=== PATIENT | female | born 1960 | race Caucasian/White ===

== ENCOUNTER → 2020-03-30 | Outpatient (CLI) | payer BC | LOC: LAB FS 10:30 | PROVIDERS: ATTEND Orthopaedic Surgery | DX: Z01.812 Encounter for preprocedural laboratory examination (principal); Z20.822 Contact with and (suspected) exposure to COVID-19 | CPT/HCPCS: 87635 ==

== ENCOUNTER 2020-04-03 17:55 | Emergency (ER) | payer BC ==
[~2020-04-03] VITALS: Ht 167.7 cm; Wt 81.8 kg
[2020-04-03 17:58] VITALS: BP 156/95
--- NOTE | 2020-04-03 18:18 | ED Lower Extremity ---
General Chief Complaint: Lower Extremity Stated Complaint: SWELLING IN RT LOWER LEG Source: patient Exam Limitations: no limitations History of Present Illness Date Seen by Provider: Apr 03, 2020 Time Seen by Provider: 18:10 Initial Comments 59 y/o female presents w swelling of her right lower leg. Had a right knee arthroscopy yesterday by Dr Khalil @ [address] [place] [address] in [place]? Says she doesn't have any leg or calf pain, just had swelling from her knee down, but she thinks she was probably up walking too much today. Swelling already better after sitting. No pain w movement, no redness. Knee w minor pain to touch and w movement. No chest pain, no SOA, cough, no exertional soa, no fever Allergies and Home Medications Allergies Coded Allergies: No Known Drug Allergies (Unverified , 04/03/20) Patient Home Medication List Home Medication List Reviewed: Yes Review of Systems Constitutional: No dizziness, No fever, No malaise, No weakness Respiratory: No cough, No dyspnea on exertion, No short of breath Cardiovascular: No chest pain, No edema, No palpitations, No syncope Gastrointestinal: No abdominal pain, No nausea, No vomiting Musculoskeletal: No back pain; joint pain (R knee, mild); No neck pain Skin: see HPI; No change in color, No lesions, No lumps, No rash Past Pgoukdh-Dspwna-Lupyhh Hx Past Med/Social Hx: Reviewed Nursing Past Med/Soc Hx Patient Social History Alcohol Use: Regular Use Number of Drinks Today: 0 Alcohol Beverage of Choice: Beer Smoking Status: Never a Smoker 2nd Hand Smoke Exposure: No Recent Hopitalizations: No Seasonal Allergies Seasonal Allergies: No Past Medical History Surgeries: Yes (Miniscus repair right knee, Total hysterectomy, Colonoscopy, breast biopsy) Breast, Hysterectomy Respiratory: No Cardiac: No Neurological: No (Restless leg syndrome) Genitourinary: No Gastrointestinal: No Musculoskeletal: No Endocrine: No HEENT: No Cancer: No Psychosocial: Yes ADD/ADHD, Depression Integumentary: No Blood Disorders: No Physical Exam Vital Signs Capillary Refill : Height, Weight, BMI Height: '" Weight: lbs. oz. kg; BMI Method: General Appearance: WD/WN, no apparent distress Legs: bilateral leg non-tender, bilateral leg normal inspection, bilateral leg normal range of motion, bilateral leg no evidence of injury Knees: bilateral knee normal inspection, bilateral knee no evidence of injury Ankles: bilateral ankle non-tender, bilateral ankle normal inspection, bilateral ankle normal range of motion, bilateral ankle no evidence of injury Feet: bilateral foot non-tender, bilateral foot normal inspection, bilateral foot normal range of motion, bilateral foot no evidence of injury Neurologic/Tendon: normal sensation, normal motor functions Neurologic/Psychiatric: no motor/sensory deficits, alert, normal mood/affect Skin: normal color, warm/dry; No cool, No ecchymosis, No rash all appropriate findings for post op R knee. Negative- Hoffmans and Homans sx. No exam findings suspicious for DVT Both calves symmetrical in size, soft and non-tender Departure Impression Primary Impression: Postoperative pain of right knee Disposition: HOME, SELF-CARE Condition: Stable Departure-Patient Inst. Decision time for Depature: 18:17 Referrals: JAQUELINE NAVAS (PCP/Family) Primary Care Physician Patient Instructions: Postoperative Pain (DC) Add. Discharge Instructions: Call Doctor Simran's office for any further questions regarding your knee. If you develop increased pain, swelling, redness of your leg.... go to the nearest ER All discharge instructions reviewed with patient and/or family. Voiced understanding. DAVID RAY DO Apr 03, 2020 18:18
== END 2020-04-03 18:20 | disposition home or self-care (01) ==
LOC: EDUNIT# 17:55 → ER FS 17:56
DX: G89.18 Other acute postprocedural pain (principal)
CPT/HCPCS: 99283